=== PATIENT | female | born 1980 | race Caucasian/White ===

== ENCOUNTER 2017-05-31 09:00 | Observation (INO) | payer OTHER ==
[~2017-05-31] VITALS: Ht 160 cm; Wt 56.1 kg
[~2017-05-31 09:00] MED LIST: HEMO324T PO; PERC5TAB12 PO; PREN0.01 PO; VITA400C28 PO
[2017-05-31 09:03] VITALS: BP 128/81; PULSE 92; RESP 18; TEMP 98.6
--- NOTE | 2017-05-31 09:05 | PD ---
HPI Chief Complaint: General Weakness Time Seen by Provider: 09:02 Travel History International Travel<30 days: No Contact w/Intl Traveler<30days: No History of Present Illness HPI Patient is a 36-year-old female presents emergency department after awaking this morning with heaviness in the left upper extremity and left lower extremity. She also states she was having difficulty finding words and difficulty talking to her daughter just morning. She states it felt like her arms and legs were very heavy and she was difficulty walking as well as losing her balance. She is nonsmoker no high blood pressure no high cholesterol. Her only medical problem is hypothyroidism. She does have family history of her father having a stroke in the 40s. She states that the symptoms lasted for about 30-45 minutes and then completely resolved. She states she is feeling well now. She states she does have a history of migraines as well but has not had a headache today. [facility] Past Medical History Diminished Hearing: No Para: 3 Miscarriage: 2 Past Surgical History Appendectomy: Yes Social History Alcohol Use: No Tobacco Use: No Substance Use: No Allergies-Medications (Allergen,Severity, Reaction): Coded Allergies: clarithromycin (Unverified Allergy, Unknown, 05/31/17) Reported Meds & Prescriptions Reported Meds & Active Scripts Active Reported Synthroid (Levothyroxine Sodium) 75 Mcg Tab 75 Mcg PO DAILY Review of Systems Except as stated in HPI: all other systems reviewed are Neg Physical Exam Narrative GENERAL: Well-developed well-nourished no obvious distress SKIN: Focused skin assessment warm/dry. HEAD: Atraumatic. Normocephalic. EYES: Pupils equal and round. No scleral icterus. No injection or drainage. ENT: No nasal bleeding or discharge. Mucous membranes pink and moist. NECK: Trachea midline. No JVD. CARDIOVASCULAR: Regular rate and rhythm. No murmur appreciated. RESPIRATORY: No accessory muscle use. Clear to auscultation. Breath sounds equal bilaterally. GASTROINTESTINAL: Abdomen soft, non-tender, nondistended. Hepatic and splenic margins not palpable. MUSCULOSKELETAL: No obvious deformities. No clubbing. No cyanosis. No edema. NEUROLOGICAL: Awake and alert. Cranial nerves II through XII are grossly intact and nonfocal, 5 out of 5 strength in all 4 extremity's. And relates with an even narrow based gait. PSYCHIATRIC: Appropriate mood and affect; insight and judgment normal. Data Data Last Documented VS Vital Signs Date Time Temp Pulse Resp B/P (MAP) Pulse Ox O2 Delivery O2 Flow Rate FiO2 05/31/17 11:10 92 15 107/65 (79) 100 Room Air 05/31/17 09:03 98.6 Orders Orders Electrocardiogram (05/31/17 09:03) Complete Blood Count With Diff (05/31/17 09:03) Comprehensive Metabolic Panel (05/31/17 09:03) Creatine Kinase (Cpk) (05/31/17 09:03) Prothrombin Time / Inr (Pt) (05/31/17 09:03) Act Partial Throm Time (Ptt) (05/31/17 09:03) Troponin I (05/31/17 09:03) Thyroid Stimulating Hormone (05/31/17 09:03) Urinalysis - C+S If Indicated (05/31/17 09:03) Chest, Single Ap (05/31/17 09:03) Ecg Monitoring (05/31/17 09:03) Iv Access Insert/Monitor (05/31/17 09:03) Oximetry (05/31/17 09:03) Sodium Chloride 0.9% Flush (Ns Flush) (05/31/17 09:15) Ed Urine Pregnancytest Poc (05/31/17 09:03) Vascular Access Team Consult/P PRN (05/31/17 10:04) Vascular Poc Ultrasound (05/31/17 ) Mra Brain W/O Contrast (Cow) (05/31/17 ) Mra Carotids W Contrast (05/31/17 ) Mri Brain W&W/O Contrast (05/31/17 ) Urine Culture (05/31/17 09:40) Consult Neurology (05/31/17 ) Aspirin Chew (Aspirin Chew) (05/31/17 13:00) Admit Order (Ed Use Only) (05/31/17 ) Consult Neurology (05/31/17 ) Labs Laboratory Tests Test 05/31/17 09:40 White Blood Count 4.3 TH/MM3 Red Blood Count 4.83 MIL/MM3 Hemoglobin 14.6 GM/DL Hematocrit 42.8 % Mean Corpuscular Volume 88.6 FL Mean Corpuscular Hemoglobin 30.3 PG Mean Corpuscular Hemoglobin Concent 34.2 % Red Cell Distribution Width 13.2 % Platelet Count 235 TH/MM3 Mean Platelet Volume 9.3 FL Neutrophils (%) (Auto) 62.1 % Lymphocytes (%) (Auto) 30.2 % Monocytes (%) (Auto) 4.6 % Eosinophils (%) (Auto) 2.2 % Basophils (%) (Auto) 0.9 % Neutrophils # (Auto) 2.6 TH/MM3 Lymphocytes # (Auto) 1.3 TH/MM3 Monocytes # (Auto) 0.2 TH/MM3 Eosinophils # (Auto) 0.1 TH/MM3 Basophils # (Auto) 0.0 TH/MM3 CBC Comment DIFF FINAL Differential Comment Prothrombin Time 10.6 SEC Prothromb Time International Ratio 1.0 RATIO Activated Partial Thromboplast Time 26.0 SEC Urine Color LIGHT-YELLOW Urine Turbidity CLEAR Urine pH 6.5 Urine Specific Erwin 1.010 Urine Protein NEG mg/dL Urine Glucose (UA) NEG mg/dL Urine Ketones NEG mg/dL Urine Occult Blood NEG Urine Nitrite NEG Urine Bilirubin NEG Urine Urobilinogen LESS THAN 2.0 MG/DL Urine Leukocyte Esterase NEG Urine RBC 0-1 /hpf Urine WBC 0-2 /hpf Urine Squamous Epithelial Cells 0-5 /hpf Urine Bacteria FEW /hpf Microscopic Urinalysis Comment CATH-CULTURE IND Blood Urea Nitrogen 12 MG/DL Creatinine 0.76 MG/DL Random Glucose 98 MG/DL Total Protein 8.4 GM/DL Albumin 4.6 GM/DL Calcium Level 8.9 MG/DL Alkaline Phosphatase 49 U/L Aspartate Amino Transf (AST/SGOT) 18 U/L Alanine Aminotransferase (ALT/SGPT) 22 U/L Total Bilirubin 1.8 MG/DL Sodium Level 138 MEQ/L Potassium Level 3.6 MEQ/L Chloride Level 104 MEQ/L Carbon Dioxide Level 28.8 MEQ/L Anion Gap 5 MEQ/L Estimat Glomerular Filtration Rate 87 ML/MIN Total Creatine Kinase 103 U/L Troponin I LESS THAN 0.02 NG/ML Thyroid Stimulating Hormone 3rd Gen 0.858 uIU/ML [facility] Medical Decision Making Medical Screen Exam Complete: Yes Emergency Medical Condition: Yes Differential Diagnosis Complex migraine, TIA, stroke, hypercoagulability. Narrative Course Patient roomed in emergency department, taken a MRA or MRI and MRA of the brain which was reassuring. Basic labs also reassuring, TSH negative., EKG normal. Unknown as to cause of the symptoms the patient was discussed with Dr. Rodríguez who recommended admission to the hospital for further workup. She remained nonfocal in the emergency department. She did develop a mild headache but did not request any pain medicine for. Diagnosis Primary Impression: Unilateral weakness Referrals: Jesus Kovacs PhD, MD Disposition: 01 DISCHARGE HOME Condition: Stable Angel Luis Baltazar MD May 31, 2017 09:05
[2017-05-31] MEDS ORDERED: SODIUM CHLORIDE 0.9% FLUSH 5 ML FLUSH IV FLUSH PRN (09:15)
[2017-05-31] MEDS ORDERED: LEVO.075 PO (09:16)
[2017-05-31 10:17] LABS: AUTOMATED NEUTROPHIL # 2.6 TH/MM3 (1.8-7.7); BASOPHIL % 0.9 % (0.0-2.0); EOSINOPHIL # 0.1 TH/MM3 (0-0.4); EOSINOPHIL % 2.2 % (0.0-4.0); HEMATOCRIT 42.8 % (35.0-46.0); HEMO FLAGS DIFF FINAL; LYMPH % 30.2 % (9.0-44.0); LYMPHOCYTE # 1.3 TH/MM3 (1.0-4.8); MEAN CELL VOLUME 88.6 FL (80.0-100.0); MEAN CORPUSCULAR HEMOGLOBIN 30.3 PG (27.0-34.0); MEAN CORPUSCULAR HGB CONC 34.2 % (32.0-36.0); MONO % 4.6 % (0.0-8.0); NEUT % 62.1 % (16.0-70.0); PLATELET COUNT 235 TH/MM3 (150-450); RED BLOOD COUNT 4.83 MIL/MM3 (4.00-5.30); RED CELL DISTRIBUTION WIDTH 13.2 % (11.6-17.2); WHITE BLOOD COUNT 4.3 TH/MM3 (4.0-11.0)
[2017-05-31 10:25] LABS: PROTHROMBIN TIME - PATIENT 10.6 SEC (9.8-11.6)
[2017-05-31 10:46] LABS: ALKALINE PHOSPHATASE 49 U/L (45-117); CREATINE KINASE 103 U/L (26-192); TOTAL BILIRUBIN ADULT 1.8 MG/DL (0.2-1.0)
[2017-05-31 10:48] LABS: BLOOD, URINE NEG (NEG); GLUCOSE,URINE NEG (NEG); KETONE, URINE NEG (NEG); NITRITE,URINE NEG (NEG); PH, URINE 6.5 (5.0-8.5); URINE COLOR LIGHT-YELLOW (YELLW/STRAW)
--- NOTE | 2017-05-31 10:52 | RADRPT ---
EXAM DATE/TIME: 05/31/2017 10:43 [facility] COMPARISON: No previous studies available for comparison. INDICATIONS : Syncopal episode. MEDICAL HISTORY : Thyroid disease. SURGICAL HISTORY : Appendectomy. section. ENCOUNTER: Initial ACUITY: 1 day PAIN SCORE: 0/10 LOCATION: chest FINDINGS: A single view of the chest demonstrates the lungs to be symmetrically aerated without evidence of mas s, infiltrate or effusion. The cardiomediastinal contours are unremarkable. Osseous structures are intact. CONCLUSION: No acute disease. David Fernandes MD on May 31, 2017 at 10:51 Board Certified Radiologist. This report was verified electronically.
[2017-05-31 10:56] LABS: BACTERIA, URINE FEW /hpf; RBC, URINE 0-1 /hpf (0-3); WBC, URINE 0-2 /hpf (0-5)
[2017-05-31 10:57] LABS: ALT (GPT) 22 U/L (10-53); ANION GAP 5 MEQ/L (5-15); AST (GOT) 18 U/L (15-37); BICARBONATE 28.8 MEQ/L (21.0-32.0); BLOOD UREA NITROGEN 12 MG/DL (7-18); CHLORIDE 104 MEQ/L (98-107); COMMENT (UR) CATH-CULTURE IND; CULTURE IF INDICATED CATH CULTURE IND; GLOMERULAR FILTRATION RATE 87 ML/MIN (>89); POTASSIUM 3.6 MEQ/L (3.5-5.1); SODIUM (NA) 138 MEQ/L (136-145); SQUAMOUS EPITHELIAL CELL URINE 0-5 /hpf (0-5)
--- NOTE | 2017-05-31 11:02 | RADRPT ---
EXAM DATE/TIME: 05/31/2017 09:57 [facility] COMPARISON: MRI BRAIN W & W/O CONTRAST, May 31, 2017, 9:57. INDICATIONS : Left arm weakness. MEDICAL HISTORY : None. SURGICAL HISTORY : section. Appendectomy. ENCOUNTER: Initial ACUITY: 1 day PAIN SCORE: 0/10 LOCATION: cranial Please note a normal MRA of the brain does not entirely exclude the possibility of a small aneurysm, nor the possibility of distal intracranial vessel disease. TECHNIQUE: 3D time of flight MRA was performed. Source images, multiplanar STS MIP, and 3D volume MIP reconstru ctions were reviewed. FINDINGS: There is excellent visualization of the major intracranial arteries out to the second-order branch ve ssels. There is no evidence for aneurysm, vessel truncation or stenosis, and no evidence for vascula r malformation. CONCLUSION: 1. Negative examination. Toro Corado MD on May 31, 2017 at 10:59 Board Certified Radiologist. This report was verified electronically.
--- NOTE | 2017-05-31 11:05 | RADRPT ---
EXAM DATE/TIME: 05/31/2017 09:57 [facility] COMPARISON: No previous studies available for comparison. INDICATIONS : Left sided arm weakness. CONTRAST: 20 cc Omniscan (gadodiamide) IV MEDICAL HISTORY : None. SURGICAL HISTORY : section. Appendectomy. ENCOUNTER: Initial ACUITY: 1 day PAIN SCORE: 0/10 LOCATION: cranial TECHNIQUE: Multiplanar, multisequence MRI of the brain was performed both prior to and following the administrat ion of paramagnetic contrast. FINDINGS: CEREBRUM: The ventricles are normal for age. No evidence of midline shift, mass lesion, hemorrhage or acute in farction. No extraaxial fluid collections are seen. The pituitary gland and suprasellar cistern are normal in configuration. WHITE MATTER: No significant signal abnormalities are seen in the white matter. POSTERIOR FOSSA: The cerebellum and brainstem are intact. The 4th ventricle is midline. The cerebellopontine angle is unremarkable. The cerebellar tonsils are normal in position. DIFFUSION IMAGING: No focal areas of restricted diffusion are seen. No evidence of acute infarction. EXTRACRANIAL: The visualized portions of the orbits and paranasal sinuses are unremarkable. POST-CONTRAST: No abnormal areas of parenchymal or dural enhancement. No evidence of blood-brain barrier breakdown. CONCLUSION: Unremarkable MRI of the brain. No acute infarction seen. David Fernandes MD on May 31, 2017 at 10:57 Board Certified Radiologist. This report was verified electronically.
[2017-05-31 11:10] VITALS: BP 107/65; PULSE 92; RESP 15; O2SAT 100
--- NOTE | 2017-05-31 11:21 | RADRPT ---
EXAM DATE/TIME: 05/31/2017 09:57 [facility] COMPARISON: No previous studies available for comparison. INDICATIONS : Left sided arm weakness. CONTRAST: 20 cc Omniscan (gadodiamide) IV MEDICAL HISTORY : None. SURGICAL HISTORY : section. Appendectomy. ENCOUNTER: Initial ACUITY: 1 day PAIN SCORE: 0/10 LOCATION: cranial Percent stenosis is calculated using the diameter of the stenotic region over the diameter of the nor mal distal internal carotid artery. TECHNIQUE: Bolus infused MRA of the extracranial circulation was performed using a neurovascular coil. Post pro cessing was performed including rotating subvolume maximum intensity projections of each carotid elliott ry, rotating full volume maximum intensity projections of both carotid arteries, sagittal and coronal sliding thin slab reformations of each carotid artery, and left oblique sliding thin slab reformatio n through the aortic arch to include the origin of the arch branch vessels. FINDINGS: AORTIC ARCH: There is a three vessel origin of the great vessels from the aorta. No evidence of ostial narrowing. RIGHT CAROTID: The common carotid artery is intact. The carotid bulb has a normal configuration without ulceration or narrowing. The internal carotid artery lumen is smooth without stenosis. The external carotid ar hans is intact. LEFT CAROTID: The common carotid artery is intact. The carotid bulb has a normal configuration without ulceration or narrowing. The internal carotid artery lumen is smooth without stenosis. The external carotid ar hans is intact. VERTEBRALS: The vertebral arteries have a symmetric diameter. No stenotic lesions are seen. CONCLUSION: Normal carotid arteries. David Fernandes MD on May 31, 2017 at 11:15 Board Certified Radiologist. This report was verified electronically.
[2017-05-31] MEDS ORDERED: GADODIAMIDE PF 287 MG/ML 20 ML VIAL (for RAD MRI) IV PUSH ONE (12:55)
[2017-05-31] MEDS ORDERED: ASPIRIN 81 MG CHEW TAB CHEW ONE (13:00)
[2017-05-31 14:00] VITALS: BP 110/72; PULSE 78; RESP 16; O2SAT 99
--- NOTE | 2017-05-31 14:14 | HHI.HP ---
HPI Service [facility] Primary Care Physician Dr. Mccoy Admission Diagnosis TIA vs Complex migraine Chief Complaint: Left sided paresthesias and difficulty with word finding Travel History International Travel<30 Days: No Contact w/Intl Traveler <30 Da: No Traveled to Known Affected Are: No History of Present Illness Dr. Casillas is a pleasant 36 y/o WF with hypothyroidism and migraine headaches typically associated with nausea and photophobia. She typically uses Advil for relief of migraine headaches. She presented to the ED on 05/31/17 with left UE and LE "heaviness" that began when she woke up this morning. She reports that the left arm heaviness was from the shoulder to the fingers and the left leg felt heavy as well. She felt that that when she was ambulating to the bathroom that she was leaning more to the left side. There was some dizziness and some slight nausea. She denies any noted nystagmus or pupil asymmetry. In spite of these symptoms she was able to get ready for work and get her kids ready for school this morning. She felt like she had some difficulty with word finding when speaking with her daughter this morning and with trying to say her daughters name. 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 She denies any recent viral illness. Of note the patient reports that she had a cluster headache that occurred 3-4 days ago behind the right eye with associated tearing. This lasted up until yesterday. She tried Advil and Oxygen therapy prior to yesterday without relief. Pt was sent to the ED upon arrival to work here at [employer] [facility] [place]. She had MRI/MRA Brain and neck where were negative. She states that the heaviness in her LUE resolved after the MRI. The heaviness in her LLE resolved about 15-20 mins after initial onset. Denies any headache today. No noted facial drooping. Pt reports that she has been under a lot of stress lately. No other recent medical or rajesh changes. She takes Synthroid daily for her hypothyroidism and occasionally Advil for headaches. Review of Systems Constitutional: DENIES: Fever, Chills, Dizziness Eyes: DENIES: Vision loss Ears, nose, mouth, throat: DENIES: Hearing loss Respiratory: DENIES: Cough, Shortness of breath Cardiovascular: DENIES: Chest pain, Palpitations, Dyspnea on Exertion, Lower Extremity Edema Gastrointestinal: DENIES: Abdominal pain, Nausea, Vomiting Genitourinary: DENIES: Urinary incontinence, Urgency, Dysuria Musculoskeletal: DENIES: Back pain, Neck pain Integumentary: DENIES: Rash Neurologic: COMPLAINS OF: Localized weakness, Paresthesias, Speech Problems, Poor Balance, DENIES: Headache, Seizures Past Family Social History Past Medical History Hypothyroidism Migraine headache Pt has hx of , no miscarriages Past Surgical History Appendectomy Cesarian section x 2 Reported Medications Synthroid 75 Mcg PO DAILY Allergies: Coded Allergies: clarithromycin (Unverified Allergy, Unknown, 05/31/17) Family History Father with hx of multiple strokes, starting in his mid 40's. He did have a PFO. Father with also hx of DVT and bilateral PEs in his 50's, pt was reportedly on an airplane. Not a smoker. Pts daughter had a stroke and found to have ASD. Paternal uncle with hx of DVT. Mother with Antiphospholipid Ab/Lupus anticoagulant and is on ASA Social History No alcohol, tobacco or illicit drug use Physical Exam Vital Signs Vital Signs Date Time Temp Pulse Resp B/P (MAP) Pulse Ox O2 Delivery O2 Flow Rate FiO2 05/31/17 11:10 92 15 107/65 (79) 100 Room Air 05/31/17 09:03 98.6 92 18 128/81 (97) Physical Exam GENERAL: This is a well-nourished, well-developed patient, in no apparent distress. SKIN: No rashes, ecchymoses or lesions. Cool and dry. HEENT: Atraumatic. Normocephalic. No temporal or scalp tenderness. No scleral icterus. Airway patent. NECK: Trachea midline, supple, nontender. CARDIO: Regular. RESP: CTA bilaterally. No wheezes, rales, or rhonchi. ABD: +BS, soft, non-tender, nondistended. No hepato-splenomegaly, or palpable masses. No guarding. EXT: Extremities without clubbing, cyanosis, or edema. NEURO: Awake and alert. Cranial nerves II through XII intact. Motor and sensory grossly within normal limits. Five out of 5 muscle strength in all muscle groups. Normal speech. Laboratory Laboratory Tests Test 05/31/17 09:40 White Blood Count 4.3 Red Blood Count 4.83 Hemoglobin 14.6 Hematocrit 42.8 Mean Corpuscular Volume 88.6 Mean Corpuscular Hemoglobin 30.3 Mean Corpuscular Hemoglobin Concent 34.2 Red Cell Distribution Width 13.2 Platelet Count 235 Mean Platelet Volume 9.3 Neutrophils (%) (Auto) 62.1 Lymphocytes (%) (Auto) 30.2 Monocytes (%) (Auto) 4.6 Eosinophils (%) (Auto) 2.2 Basophils (%) (Auto) 0.9 Neutrophils # (Auto) 2.6 Lymphocytes # (Auto) 1.3 Monocytes # (Auto) 0.2 Eosinophils # (Auto) 0.1 Basophils # (Auto) 0.0 CBC Comment DIFF FINAL Differential Comment Prothrombin Time 10.6 Prothromb Time International Ratio 1.0 Activated Partial Thromboplast Time 26.0 Urine Color LIGHT-YELLOW Urine Turbidity CLEAR Urine pH 6.5 Urine Specific Bryant 1.010 Urine Protein NEG Urine Glucose (UA) NEG Urine Ketones NEG Urine Occult Blood NEG Urine Nitrite NEG Urine Bilirubin NEG Urine Urobilinogen LESS THAN 2.0 Urine Leukocyte Esterase NEG Urine RBC 0-1 Urine WBC 0-2 Urine Squamous Epithelial Cells 0-5 Urine Bacteria FEW Microscopic Urinalysis Comment CATH-CULTURE IND Blood Urea Nitrogen 12 Creatinine 0.76 Random Glucose 98 Total Protein 8.4 Albumin 4.6 Calcium Level 8.9 Alkaline Phosphatase 49 Aspartate Amino Transf (AST/SGOT) 18 Alanine Aminotransferase (ALT/SGPT) 22 Total Bilirubin 1.8 Sodium Level 138 Potassium Level 3.6 Chloride Level 104 Carbon Dioxide Level 28.8 Anion Gap 5 Estimat Glomerular Filtration Rate 87 Total Creatine Kinase 103 Troponin I LESS THAN 0.02 Thyroid Stimulating Hormone 3rd Gen 0.858 Date/Time Source Procedure Growth Status 05/31/17 09:40 Urine Catheterized Urine Urine Culture Pending Received Result Diagram: 05/31/1740 05/31/1740 Imaging Last Impressions Chest X-Ray 05/31/17 0903 Signed Impressions: Service Date/Time: Wednesday, May 31, 2017 10:43 - CONCLUSION: No acute disease. David Fernandes MD Neck Magnetic Resonance Angiography 05/31/17 0000 Signed Impressions: Service Date/Time: Wednesday, May 31, 2017 09:57 - CONCLUSION: Normal carotid arteries. David Fernandes MD Head Magnetic Resonance Angiography 05/31/17 0000 Signed Impressions: Service Date/Time: Wednesday, May 31, 2017 09:57 - CONCLUSION: 1. Negative examination. Toro Corado MD Brain MRI 05/31/17 0000 Signed Impressions: Service Date/Time: Wednesday, May 31, 2017 09:57 - CONCLUSION: Unremarkable MRI of the brain. No acute infarction seen. David Fernandes MD Septic Shock Reassessment Heart: Regular rate and rhythm Lungs: Clear Skin: Warm Caprini VTE Risk Assessment Caprini VTE Risk Assessment: No/Low Risk (score <= 1) Caprini Risk Assessment Model Point Value = 1 Point Value = 2 Point Value = 3 Point Value = 5 Age 41-60 Minor surgery BMI > 25 kg/m2 Swollen legs Varicose veins or History of unexplained or recurrent spontaneous Oral contraceptives or hormone replacement Sepsis (< 1 month) Serious lung disease, including pneumonia (< 1 month) Abnormal pulmonary function Acute myocardial infarction Congestive heart failure (< 1 month) History of inflammatory bowel disease Medical patient at bed rest Age 61-74 Arthroscopic surgery Major open surgery (> 45 min) Laparoscopic surgery (> 45 min) Malignancy Confined to bed (> 72 hours) Immobilizing plaster cast Central venous access Age >= 75 History of VTE Family history of VTE Factor V Leiden Prothrombin [id number] Lupus anticoagulant Anticardiolipin antibodies Elevated serum homocysteine Heparin-induced thrombocytopenia Other congenital or acquired thrombophilia Stroke (< 1 month) Elective arthroplasty Hip, pelvis, or leg fracture Acute spinal cord injury (< 1 month) Prophylaxis Regimen Total Risk Factor Score Risk Level Prophylaxis Regimen 0-1 Low Early ambulation 2 Moderate Order ONE of the following: *Sequential Compression Device (SCD) *Heparin 5000 units SQ BID 3-4 Higher Order ONE of the following medications: *Heparin 5000 units SQ TID *Enoxaparin/Lovenox 40 mg SQ daily (WT < 150 kg, CrCl > 30 mL/min) *Enoxaparin/Lovenox 30 mg SQ daily (WT < 150 kg, CrCl > 10-29 mL/min) *Enoxaparin/Lovenox 30 mg SQ BID (WT < 150 kg, CrCl > 30 mL/min) AND/OR *Sequential Compression Device (SCD) 5 or more Highest Order ONE of the following medications: *Heparin 5000 units SQ TID (Preferred with Epidurals) *Enoxaparin/Lovenox 40 mg SQ daily (WT < 150 kg, CrCl > 30 mL/min) *Enoxaparin/Lovenox 30 mg SQ daily (WT < 150 kg, CrCl > 10-29 mL/min) *Enoxaparin/Lovenox 30 mg SQ BID (WT < 150 kg, CrCl > 30 mL/min) AND *Sequential Compression Device (SCD) Assessment and Plan Problem List: (1) Unilateral weakness ICD Codes: R53.1 - Weakness Status: Acute Plan: - Pt is a 36 y/o female with hypothyroidism and hx of migraine headaches typically associated with nausea and photophobia. Unilateral paresthesia/weakness, resolved Difficulty with word finding, resolved Family hx of CVA/PFO and positive Lupus anticoagulant - Pt presented to the ED on 05/31/17 with left UE and LE "heaviness" that began when she woke up this morning and was leaning more to the left side when trying to ambulate to the bathroom. There was some dizziness. No headache reported. She felt like she had some difficulty with word finding when speaking with her daughter this morning and with trying to say her daughters name. 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 Of note the patient reports that she had a cluster headache that started about 3-4 days ago behind the right eye with associated tearing but resolved yesterday. - She had MRI/MRA brain and neck which were negative. - She states that the heaviness in her LUE resolved after the MRI. The heaviness in her LLE resolved about 15-20 mins after initial onset. - There is no evidence of obvious stroke on the MRI/MRA. Etiology of the pts symptoms is unclear, given her family hx there is concern for possible TIA vs. complex migraine vs. other. - Neurology has been consulted - Pt with a string family hx of CVA, father had a PFO, mother with hx of lupus anticoagulant and daughter with a stroke - Check hypercoagulable workup, Factor V Leiden, Protein C and S, Lupus anticoagulant, Beta-2-GP, and Cardiolipin Abs - 2D echo - library monitor - Pt was given ASA 325mg in the ED and we will continue this. - Supportive care - Further recommendations as the case develops Hypothyroidism - Cont. home meds (2) Hypothyroidism ICD Codes: E03.9 - Hypothyroidism, unspecified Hansa Krishna May 31, 2017 14:14
--- NOTE | 2017-05-31 15:49 | ECHRPT ---
Indication: CVA/TIA CONCLUSIONS Normal left ventricular size. The left ventricular systolic function is hyperdynamic with an estima estefanía ejection fraction in the range of 65-70%. Wall thickness is normal. A chiari network is observed in the right atrial cavity (benign finding). No definite patent livan en ovale is identified. There is trace tricuspid and trace mitral valve regurgitation. BP: 107 / 65 HR: 95 Rhythm: Sinus MEASUREMENTS (Male / Female) Normal Values Technical Quality:Fair 2D ECHO LV Diastolic Diameter PLAX 4.5 cm 4.2 - 5.9 / 3.9 - 5.3 cm LV Systolic Diameter PLAX 3.1 cm IVS Diastolic Thickness 0.6 cm 0.6 - 1.0 / 0.6 - 0.9 cm LVPW Diastolic Thickness 0.6 cm 0.6 - 1.0 / 0.6 - 0.9 cm LV Relative Wall Thickness 0.3 LVOT Diameter 1.9 cm Aortic Root Diameter 2.4 cm LA Systolic Diameter LX 1.7 cm 3.0 - 4.0 / 2.7 - 3.8 cm M-MODE AV Cusp Separation MM 2.0 cm DOPPLER AV Peak Velocity 165.0 cm/s AV Peak Gradient 10.9 mmHg AV Mean Gradient 6.0 mmHg AV Velocity Time Integral 26.2 cm LVOT Peak Velocity 140.0 cm/s LVOT Peak Gradient 7.8 mmHg LVOT Velocity Time Integral 24.6 cm AV Area Cont Eq vti 2.7 cm AV Area Cont Eq pk 2.4 cm Mitral E Point Velocity 98.2 cm/s Mitral A Point Velocity 44.9 cm/s Mitral E to A Ratio 2.2 LV E' Lateral Velocity 17.6 cm/s Mitral E to LV E' Lateral Ratio 5.6 LV E' Septal Velocity 14.4 cm/s Mitral E to LV E' Septal Ratio 6.8 PV Peak Velocity 81.2 cm/s PV Peak Gradient 2.6 mmHg FINDINGS LEFT VENTRICLE Normal left ventricular size. The left ventricular systolic function is hyperdynamic with an estimated ejection fraction in the ra nge of 65- 70%. Wall thickness is normal. RIGHT VENTRICLE Normal right ventricular size and systolic function. LEFT ATRIUM The left atrial size is normal. RIGHT ATRIUM A prominent chiari network is observed in the right atrial cavity (benign finding). ATRIAL SEPTUM Normal atrial septal thickness without atrial level shunting by limited color doppler interrogation. AORTA The aortic root and proximal ascending aorta are normal in size on limited imaging. MITRAL VALVE Trace mitral valve regurgitation. AORTIC VALVE Trileaflet aortic valve. No aortic valve stenosis or regurgitation. TRICUSPID VALVE There is trace tricuspid valve regurgitation. PULMONARY VALVE The pulmonary valve is not well visualized. VESSELS The inferior vena cava is normal in size. PERICARDIUM No pericardial effusion. Alberto Bae MD (Electronically Signed) Final Date:31 May 2017 15:48
[2017-05-31 16:27] VITALS: BP 101/58; PULSE 67; RESP 20; TEMP 98.6; O2SAT 100
[2017-05-31 17:57] VITALS: PULSE 75
--- NOTE | 2017-05-31 18:31 | EKG ---
Date Performed: 05/31/2017 Time Performed: 11:12:47 PTAGE: 36 years EKG: Sinus rhythm NORMAL ECG Since PREVIOUS TRACING , no significant change noted PREVIOUS TRACING 06/09/2013 22.40.32 DOCTOR: Sandro Urbina Interpretating Date/Time 05/31/2017 18:30:36
--- NOTE | 2017-05-31 19:29 | MB ---
cc: MARTHASANTO DATE OF CONSULTATION 05/31/17 HISTORY OF PRESENT ILLNESS A 36-year-old right-handed woman with a history of thyroid disease, otherwise she has been very healthy. She does have a history of headaches since her college days, about a 3 week, worse if she is under stress. They sometimes start in the left trapezius, come up bifrontally, throbbing, occasional nausea, occasional vomiting. No sintilations. 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 No vision loss or speech problems and then this morning she got up, she felt fine in bed and when she sat up she felt like she was leaning over to the left, like her left arm and leg were heavy. She got out of bed and felt like she was leaning over to one side, evidently fell over on her couch. Was able to get up and then within 30-60 minutes the leaning part which she felt was some heaviness and weakness on the left side seemed to resolve but she was still left with a little bit of heaviness when she was drinking her coffee a few hours later. Wound up coming into the ER. She felt shaky, like her left arm shaky, maybe a little shaky all over. No real headache with it. This past week, however, she had a severe right retro-orbital headache for about 2 days starting on Saturday which is unusual location for her headaches. SOCIAL HISTORY Not a smoker or drinker. She works as a doctor here. She lives with her and child. FAMILY HISTORY Negative for cancer or seizures. Positive for stroke in her father who had a PFO and evidently a stroke when he was 47. She has a mother with lupus and antiphospholipid antibody. She had a baby that had a stroke with some hemiparesis from that and that is unclear if it was in utero or not. Negative for blood clots or miscarriages in herself or others. REVIEW OF SYSTEMS She denies any hypertension, diabetes, hypercholesterolemia, chest pain, palpitations, GA, CABG, stent angioplasty, a-fib, Coumadin, renal, hepatic or pulmonary disease, lupus, ulcer, cancer, seizure, stroke. No vertigo with it. MEDICATIONS She just takes a Synthroid 75 micrograms a day. She does not take an aspirin a day. No multivitamins. ALLERGIES ALLERGIC TO CLARITHROMYCIN. PHYSICAL EXAMINATION VITAL SIGNS: On exam here 128/81. She had been in sinus rhythm, afebrile, 92, 18. NECK: There were no carotid or vertebral or ocular bruits. HEART: Heart was regular rhythm. I did not detect a murmur. NEURO: Pupils are equal. Visual hamilton are full. Extraocular movements intact without nystagmus. Face symmetrical with normal sensation. Tongue was midline. There was no drift. She had normal strength in upper and lower extremities bilaterally. Fast finger movement are symmetric, especially on the left hand. DTRs are trace throughout. Toes downgoing bilaterally. Pinprick intact throughout ___ vibratory sense. She is not ataxic on [id number]. Speech is fluent. She is not aphasic. She did not have any trouble walking now. LABORATORY DATA CBC is normal. She had a hyper coag screen, is pending. UA was negative. Basic metabolic profile LFTs normal. Troponin normal. Total protein 8.4, CPK normal. TSH normal. IMAGING STUDIES MRI of the brain is normal. No old or new infarcts. No evidence for MS. Sinuses look fine, that is with and without contrast. No enhancement is noted. MRA council of [place] was read as normal review of the films, does appear to be normal. Vertebrobasilar system looks fine. The right middle cerebral artery and right internal carotid artery intracranially look fine. No evidence for aneurysm. MRA of the neck also looks fine, vertebral arteries and carotids, all look normal from their origins all up. IMPRESSION Possibly an acephalgic migraine episode. I think it is worth however checking an a transesophageal echo on her, hyper coag screen, some additional blood work. For now she will take 325 of aspirin a day. I note we need to do a cholesterol on her and some other blood work. I note she did have an echocardiogram done here which showed a normal ejection fraction. No patent foramen ovale was noted. ____ size was 1.7 cm. She had trace mitral valve regurg on her echo, otherwise the echo was normal. I would recommend checking a 30-day Holter on her, getting a LEIGH ANN as an outpatient next week. After she gets her blood work here she could be discharged. The sagittal sinus appears to have a flow void on the contrast images. I will have to review that with the radiologist and see if they think she could possibly have a sagittal sinus thrombosis before discharge. MD JAD Maguire/RAFAT /6:47 PM /6:59 PM
[2017-05-31 20:59] LABS: FREE T4 1.19 NG/DL (0.76-1.46); HDL CHOLESTEROL 67.8 MG/DL (40.0-60.0); LDL CHOLESTEROL 131 MG/DL (0-99)
[2017-05-31 21:11] LABS: BETA HCG QUANT LESS THAN 1 MIU/ML (0-5)
[2017-05-31 21:41] VITALS: BP 100/68; PULSE 68; RESP 18; TEMP 98.5; O2SAT 98
--- NOTE | 2017-05-31 21:43 | RADRPT ---
EXAM DATE/TIME: 05/31/2017 20:02 [facility] COMPARISON: No previous studies available for comparison. INDICATIONS : CVA. MEDICAL HISTORY : None. SURGICAL HISTORY : section. Appendectomy. ENCOUNTER: Subsequent ACUITY: 1 day PAIN SCORE: 0/10 LOCATION: cranial Please note a normal MRA of the brain does not entirely exclude the possibility of a small aneurysm, nor the possibility of distal intracranial vessel disease. TECHNIQUE: MR venography of the brain was performed without contrast with multiplanar and 3D reconstructions. FINDINGS: The venous dural sinuses are clear. The transverse and sigmoid sinus are asymmetric being smaller on the left and larger on the right. This is a normal finding. CONCLUSION: No venous thrombosis is seen. Jose Diallo MD on May 31, 2017 at 21:40 Board Certified Radiologist. This report was verified electronically.
[2017-05-31] MEDS ORDERED: ASA325 PO (21:56)
--- NOTE | 2017-05-31 21:57 | HHI.DCPOC ---
Discharge Care Plan Diagnosis: (1) Unilateral weakness (2) Hypothyroidism Goals to Promote Your Health * To prevent worsening of your condition and complications * To maintain your health at the optimal level Directions to Meet Your Goals Take your medications as prescribed Follow your dietary instruction Follow activity as directed Keep your appointments as scheduled Take your immunizations and boosters as scheduled If your symptoms worsen call your PCP, if no PCP go to Urgent Care Center or Emergency Room Smoking is Dangerous to Your Health. Avoid second hand smoke Call the 24-hour hour crisis hotline for domestic abuse at Sandro Briseno MD May 31, 2017 21:57
[2017-05-31 22:34] LABS: RHEUMATOID FACTOR TRIGGER LESS THAN 10.0 IU/ML (0.0-14.9)
[2017-06-01] MEDS ORDERED: LEVOTHYROXINE SODIUM 75 MCG TAB PO SCH (06:00)
[2017-06-01] MEDS ORDERED: ASPIRIN 325 MG TAB PO SCH (09:00)
[2017-06-01 10:20] LABS: TOTAL PROTEIN SPE 7.4 GM/DL (6.0-7.6)
[2017-06-03 13:25] LABS: ANA SCREEN POS (NEG)
[2017-06-04 17:02] LABS: ALBUMIN SPE 5.02 GM/DL (3.50-5.00); ALPHA 1 GLOBULIN 0.17 GM/DL (0.11-0.29); ALPHA 2 GLOBULIN 0.67 GM/DL (0.22-1.00); BETA GLOBULINS (SPE) 0.6 GM/DL (0.53-1.03)
[2017-06-06 03:51] LABS: THROMBIN TIME FOR LA ND sec (13-19)
[2017-06-06 23:52] LABS: VITAMIN B6 9.5 ng/mL (2.1-21.7)
== END 2017-05-31 22:40 | disposition home or self-care (01) ==
LOC: NEPE 09:00 → NEDA 12:54 → N05A 15:38
PROVIDERS: ADMIT Hospitalist; ATTEND Hospitalist
DX: R53.1 Weakness (principal); R26.2 Difficulty in walking, not elsewhere classified; E03.9 Hypothyroidism, unspecified; Z82.3 Family history of stroke; G43.909 Migraine, unspecified, not intractable, without status migrainosus; R42 Dizziness and giddiness; B96.89 Other specified bacterial agents as the cause of diseases classified elsewhere; I34.0 Nonrheumatic mitral (valve) insufficiency
CPT/HCPCS: 70544; 70548; 70553; 71010; 80053; 80061; 81001; 81240; 81241; 81291; 82550; 82607; 82746; 83921; 84165; 84207; 84425; 84439; 84443; 84484; 84702; 84703; 85025; 85240; 85300; 85303; 85306; 85610; 85613; 85730; 86038; 86039; 86140; 86146; 86147; 86430; 86592; 87086; 93005; 93306; 99285; A9579; G0378; 85652

== ENCOUNTER 2017-06-12 11:33 | Day surgery (SDC) | payer OTHER ==
[~2017-06-12 11:33] MED LIST changes: +ASA325 PO; -HEMO324T PO; +LEVO.075 PO; -PERC5TAB12 PO; -PREN0.01 PO; -VITA400C28 PO
[2017-06-12] MEDS ORDERED: IOHEXOL 350 MG/ML 10 ML VIAL (for RAD DIAG) IVCONTRAST ONE (11:34)
[2017-06-12] MEDS ORDERED: LEVO50TA4 PO (12:20)
[2017-06-12] MEDS ORDERED: MULTTAB67 PO (12:20)
[2017-06-12] MEDS ORDERED: PROPOFOL 200 MG/20 ML AMP ONE (12:38)
[2017-06-12] MEDS ORDERED: LACTATED RINGER'S 1000 ML IV PRN (13:00)
[2017-06-12] MEDS ORDERED: SODIUM CHLORID 0.9% 500 ML IV PRN (13:00)
[2017-06-12] MEDS ORDERED: INSULIN HUMAN REGULAR 1,000 UNITS/10 ML VIAL SQ PRN (13:00)
[2017-06-12] MEDS ORDERED: CHLORHEXIDINE GLUCONATE 2 % 1 PACK (2 CLOTHS) TOPICAL PRN (13:00)
[2017-06-12] MEDS ORDERED: POVIDONE IODINE 5% (ANTISEPSIS KIT) 4 APPLICATIONS EACH NARE PRN (13:00)
[2017-06-12] MEDS ORDERED: METOPROLOL TARTRATE 25 MG TAB PO PRN (13:00)
--- NOTE | 2017-06-12 14:04 | ECHRPT ---
Indication: TIA CONCLUSIONS The transesophageal study is normal by two-dimensional, color flow imaging and Doppler interrogation . BP: / HR: Rhythm: Technical Quality: Medications Complications There were no complications prior to, during or in recovery from the transesophag eal echocardiogram.. Proc. Components FINDINGS LEFT VENTRICLE Normal left ventricular size and wall thickness. The left ventricular systolic function is normal wi th an estimated ejection fraction in the range of 60-65%. Left ventricular diastolic function parameters a re normal. RIGHT VENTRICLE Normal right ventricular size and systolic function. LEFT ATRIUM The left atrial size is normal. RIGHT ATRIUM The right atrial size is normal. ATRIAL APPENDAGES Normal left atrial appendage size with no evidence of thrombus formation. ATRIAL SEPTUM Normal atrial septal thickness without atrial level shunting by limited color doppler interrogation. No atrial level shunt is demonstrated by color flow Doppler or agitated saline imaging. AORTA The aortic root and proximal ascending aorta are normal in size on limited imaging. Reverberation artifact is noted and seen in several angulated views. Color doppler interrogation confirmed laminar flow throu ght the entire diameter of the aorta. MITRAL VALVE Structurally normal mitral valve. No mitral valve stenosis or regurgitation. AORTIC VALVE Trileaflet aortic valve. No aortic valve stenosis or regurgitation. TRICUSPID VALVE Structurally normal tricuspid valve. There is trace tricuspid valve regurgitation. Pulmonary arteria l systolic pressure could not be estimated due to an insufficient tricuspid valve regurgitation doppler jet for measurement. VESSELS The inferior vena cava is normal in size. PULMONARY VALVE The pulmonary valve is not well visualized. No pulmonary valve regurgitation or stenosis. PERICADIUM No pericardial effusion. Hussein Fay MD, FACC (Electronically Signed) Final Date:12 June 2017 14:04
--- NOTE | 2017-06-12 16:02 | RADRPT ---
EXAM DATE/TIME: 06/12/2017 15:09 [facility] COMPARISON: No previous studies available for comparison. INDICATIONS : Evaluate for dissection. IV CONTRAST: 75 cc Omnipaque 350 (iohexol) IV RADIATION DOSE: 3.74 CTDIvol (mGy) MEDICAL HISTORY : Hypothyroidism. SURGICAL HISTORY : Appendectomy. section. ENCOUNTER: Initial ACUITY: 1 day PAIN SCALE: 0/10 LOCATION: chest TECHNIQUE: Volumetric scanning was performed using a multi-row detector CT scanner. The data was post processed with a variety of visualization algorithms including full volume maximum intensity projection, multi -planar sliding thin slab reformation, curved planar reformation, and surface rendering techniques. Using automated exposure control and adjustment of the mA and/or kV according to patient size, radiat ion dose was kept as low as reasonably achievable to obtain optimal diagnostic quality images. DICOM format image data is available electronically for review and comparison. FINDINGS: Thoracic/abdominal aorta: There is a linear area of decreased density associated with the medial wall of the mid tibial portion of the ascending aorta. This is in an area of significant motion artifact and is felt to be artifact ual in nature. This does not have the typical dissection appearance. It does not propagate in a typic al fashion as a dissection would. There is a similar artifact involving the anterior wall of the desc ending aorta adjacent to the left ventricle. No dissections are present throughout the aorta. Aorta i s normal in caliber and course. Major branches are widely patent. Heart and mediastinum: The heart is normal in size. No pericardial effusion. No dilatation of the sinus of Valsalva or sinot ubular junction. Pulmonary arteries are normal in caliber. No adenopathy. Lung parenchyma: Lungs are clear. No infiltrate, pneumothorax, or effusion. No mass. Other structures: Abdominal viscera are unremarkable. There is a trace amount of fluid deep within the pelvis. This is within the physiologic range. CONCLUSION: 1. Artifact observed involving the mid tibial portion of the ascending aorta as well as the mid desce nding aorta. No dissection or aneurysm. 2. Trace amount of free fluid deep within the pelvis which is within the physiologic range. Christiano Sandra Jr., MD on June 12, 2017 at 15:43 Board Certified Radiologist. This report was verified electronically.
== END 2017-06-12 16:09 | disposition home or self-care (01) ==
LOC: HDOC 11:33 → HDIC 11:34 → HDOC 16:09
PROVIDERS: ATTEND Internal Medicine
DX: G45.9 Transient cerebral ischemic attack, unspecified (principal); E03.9 Hypothyroidism, unspecified; Z79.82 Long term (current) use of aspirin
CPT/HCPCS: 01922; 71275; 74174; 93312; 93320; 93325; Q9967